=== PATIENT | female | born 1950 | race Two or more races ===

== ENCOUNTER → 2024-08-17 13:21 | Outpatient (REF) | payer OTHER, SELFPAY | LOC: HWWDC 13:21 | PROVIDERS: ATTENDING PHYSICIAN Family Medicine | DX: N95.1 Menopausal and female climacteric states (principal); Z12.31 Encounter for screening mammogram for malignant neoplasm of breast | CPT/HCPCS: 77080 ==

== ENCOUNTER → 2025-01-17 07:38 | Outpatient (REF) | payer OTHER, SELFPAY | LOC: HWRAD 07:38 | PROVIDERS: ATTENDING PHYSICIAN Nurse Practitioner Family | DX: M25.512 Pain in left shoulder (principal) | CPT/HCPCS: 73010; 73030; 73090 ==

== ENCOUNTER → 2025-07-11 08:15 | Outpatient (REF) | payer OTHER, SELFPAY | LOC: HWRCS 08:15 | PROVIDERS: ATTENDING PHYSICIAN Internal Medicine Cardiovascular Disease; FAMILY PHYSICIAN Family Medicine | DX: R06.02 Shortness of breath (principal) | CPT/HCPCS: 93306 ==

== ENCOUNTER → 2025-07-13 10:27 | Outpatient (REF) | payer OTHER, SELFPAY | LOC: RCS 10:27 | PROVIDERS: ATTENDING PHYSICIAN Internal Medicine Cardiovascular Disease; FAMILY PHYSICIAN Family Medicine | DX: R06.02 Shortness of breath (principal) | CPT/HCPCS: 93017; 93350 ==

== ENCOUNTER → 2025-08-21 13:28 | Outpatient (REF) | payer OTHER, SELFPAY | LOC: HWWDC 13:28 | PROVIDERS: ATTENDING PHYSICIAN Family Medicine | DX: Z12.31 Encounter for screening mammogram for malignant neoplasm of breast (principal) | CPT/HCPCS: 77063; 77067 ==

== ENCOUNTER → 2025-11-01 10:21 | Outpatient (REF) | payer OTHER, SELFPAY | LOC: WDC 10:21 | PROVIDERS: ATTENDING PHYSICIAN Family Medicine; FAMILY PHYSICIAN Family Medicine | DX: R92.333 Mammographic heterogeneous density, bilateral breasts (principal); M79.18 Myalgia, other site | CPT/HCPCS: 72110; 73502; 76641 ==